=== PATIENT | male | born 1965 | race African-American/Black ===

== ENCOUNTER → 2020-11-30 | Outpatient (CLI) | payer BC ==
[2020-11-30 16:15] LABS: CALCIUM 8.9 mg/dL (8.5-10.1); CREATININE 1.1 mg/dL (0.7-1.3); GFR 84.1
--- NOTE | 2020-11-30 16:43 | RAD ---
PA and lateral chest x-ray without comparison for shortness of breath with exertion, history of asthm a. FINDINGS: The lungs are clear. Cardiomediastinum is grossly unremarkable. No significant soft tissue or osseous abnormalities. IMPRESSION: 1. No acute cardiopulmonary abnormality. Electronically signed by: Acosta Aldana MD (11/30/2020 4:40 PM) [facility]
== END ==
LOC: LAB 15:29
PROVIDERS: ATTEND Family Medicine
DX: R06.02 Shortness of breath (principal); R06.00 Dyspnea, unspecified; Z87.09 Personal history of other diseases of the respiratory system
CPT/HCPCS: 36415; 71046; 80048; 84484

== ENCOUNTER → 2021-12-27 | Outpatient (CLI) | payer BC, OTHER ==
--- NOTE | 2021-12-27 17:00 | RAD ---
EXAM: Left lower extremity venous Doppler sonogram. HISTORY: Pain and swelling. TECHNIQUE: Webber scale and color Doppler sonographic evaluation of the left lower extremity veins with spectral waveform analysis was performed. FINDINGS: There is normal color flow, normal compressibility and there are normal spectral waveforms in the common femoral, superficial femoral, popliteal, posterior tibial and greater saphenous veins. There is a left popliteal cyst measuring 5.4 x 5.1 x 2.1 cm. IMPRESSION: 1. No Doppler evidence of lower extremity deep venous thrombosis. 2. 5.4 cm left Hannon's cyst. Electronically signed by: Susi Lynn MD (12/27/2021 4:57 PM) [id number]
== END ==
LOC: US 16:19
PROVIDERS: ATTEND Family Medicine
DX: M71.22 Synovial cyst of popliteal space [Baker], left knee (principal); M79.662 Pain in left lower leg
CPT/HCPCS: 93971